=== PATIENT | female | born 1975 | race African-American/Black ===

== ENCOUNTER 2017-06-06 06:30 | Emergency (ER) | payer OTHER ==
[~2017-06-06] VITALS: Ht 170.2 cm; Wt 61.0 kg
[2017-06-06 06:36] VITALS: BP 100/58
== END 2017-06-06 10:24 | disposition left against medical advice (07) ==
LOC: ER 06:51
DX: Z53.21 Procedure and treatment not carried out due to patient leaving prior to being seen by health care provider (principal)